=== PATIENT | female | born 1955 | race Caucasian/White ===

== ENCOUNTER 2024-12-27 12:25 | Outpatient (NON) | payer MEDICARE, OTHER, SELFPAY ==
--- OUTSIDE RECORDS SUMMARY | 2024-12-28 12:46 | XMS_ITS | Referral Summary ---
Author Organization [facility] Address [address] [place] [address] Care Team Providers Care Digital Imaging Technician Name Role Phone Leonard Serrano MD Primary Care Provider [phone] Source Comments [facility],non-owned Affiliates and Associated Physician Practices is amultiple site organization consisting of ambulatory clinics and hospital sitesin [place], [place], [place] and [place]. This disclosure is being madepursuant to the Care Everywhere program and may not contain all information available regarding this patient. Last updated 18.[facility] Allergies No known active allergies Medications * Be aware that medications may not be up to date on this document. Alwaysverify current medications with the patient. Medication Sig Dispensed Refills Start Date End Date Status LYSINE PO Active omega 3 (FISH OIL) 1200 MG capsule Take 1,200 mg by mouth once daily Active GARLIC PO Active lutein 10 MG tablet Take 10 mg by mouth once daily Active Bilberry, Vaccinium myrtillus, (BILBERRY PO) Active MILK THISTLE PO Active Misc Natural Products (TART COPOER ADVANCED PO) Active GRAPE SEED EXTRACT PO Act celio VITAMIN E PO Active Misc Natural Products (DANDELION ROOT) 520 MG Active Red Yeast Rice Extract (RED YEAST RICE PO) Activ e Coenzyme Q10 (COQ-10 PO) Active KRILL OIL PO Active Cholecalciferol (VITAMIN D-3 PO) Active Multiple Vitamin (MULTI VITAMIN PO) Take 0.5 tablets by mouth once daily Active Active Problems No known active problems Social History Tobacco Use Types Packs/Day Years Used Date Smoking Tobacco: Never Smokeless Tobacco: Never Alcohol Use Standard Drinks/Week Comments Yes 0 (1 standard drink = 0.6 oz pur e alcohol) OCCASIONALLY Sex and Gender Information Value Date Recorded Sex Assigned at Not on file Gender Identity Not on file Sexual Orientation Not on file Last Filed Vital Signs Vital Sign Reading Time Taken Comments Blood Pressure 114/76 02/09/2018 12:07 PM CDT Pulse 74 02/09/2018 12:07 PM CDT Temperature - - Respiratory Rate - - Oxygen Saturation 93% 02/09/2018 12:07 PM CDT Inhaled Oxygen Concentration - - Weight 66.2 kg (146 lb) 02/09/2018 12:07 PM CDT Height 152.4 cm (5') 02/09/2018 12:07 PM CDT Body Mass Index 28.51 02/09/2018 12:07 PM CDT Plan of Treatment Not on file Care Teams Digital Imaging Technician Relationship Specialty Start Date End Date Leonard Serrano MD [address] [address] PCP - General Internal Medicine 02/06/18
--- OUTSIDE RECORDS SUMMARY | 2024-12-28 12:46 | XMS_ITS | Clinical Summary ---
Author Organization [facility] Address [address] [place] [address] Care Team Providers Care Mud Grinder Name Role Phone Leonard Serrano MD Primary Care Provider [phone] Source Comments [facility],non-owned Affiliates and Associated Physician Practices is amultiple site organization consisting of ambulatory clinics and hospital sitesin [place], [place], [place] and [place]. This disclosure is being madepursuant to the Care Everywhere program and may not contain all information available regarding this patient. Last updated 18.[facility] Allergies No known active allergies Medications * [...] THISTLE PO Active Misc Natural Products (TART COOPER ADVANCED PO) Active GRAPE SEED EXTRACT PO [...] Active Active Problems No known active problems Family History Medical History Relation Name Comments CVA Mother Cataract Mother Cataract Sister Relation Name Status Comments Brother Alive Father Mother Sister Alive Social History Tobacco Use Types Packs/Day Years [...] 02/09/2018 12:07 PM CDT Plan of Treatment Health Maintenance Due Date Last Done Comments BONE DENSITY TESTING 1955 COLOGUARD (AGES 45-75) - COL ON CA SCREENING 1953 COLON MONITORING 1953 COLONOSCOPY - COLON CA SCREENING 1953 CT COLONOGRAPHY - COLON CA SCREENING 1953 Colorectal Cancer Screening 1953 FIT - COLON CA SCREENING 1953 FLEX SIG - COLON CA SCREENING 1953 LIPID TESTING 1953 MAMMOGRAM 1953 HEPATITIS C SCREENING 12/31/1970 DTAP/TDAP/TD VACCINES (1 - Tdap) 01/05/1972 PNEUMOCOCCAL VACCINE 50+ (1 of 1 - PCV) 2003 ZOSTER VACCINE (1 of 2) 2003 SCREENING FOR DIABETES 02/09/2018 COVID-19 VACCINE (1 - 2023-2 5 season) 2024 INFLUENZA VACCINE (#1) 2024 7, 09/14/2016 DEPRESSION SCREENING 10/24/2024 Respiratory Syncytial Virus (RSV) Vaccine Pt: or over 60 yrs (1 - 1-dose 75+ series) 01/05/2028 HEPATITIS B VACCINE Aged Out No longe r eligible based on patient's age to complete this topic HIB VACCINE Aged Out No longer eligi ble based on patient's age to complete this topic HPV VACCINE Aged Out No longer eligi ble based on patient's age to complete this topic MENINGOCOCCAL (Group B) VACCINE Aged Out No longer eligible b ased on patient's age to complete this topic MENINGOCOCCAL VACCINE Aged Out No kyra inocencio eligible based on patient's age to complete this topic Care Teams Mud Grinder Relationship Specialty Start Date End Date Leonard Serrano MD [address] [id number] PCP - General Internal Medicine 02/06/18
--- OUTSIDE RECORDS SUMMARY | 2024-12-28 12:46 | XMS_ITS | Continuity of Care Document ---
Author Organization [employer] [facility] Address [address] [place] [address] Phone Care Team Providers Care Mold Cooler Name Role Phone Alfredo OD, Blanca Unavailable Unavailable Allergies, Adverse Reactions, Alerts Substance Reaction Status Criticality No Known Allergies Active No Inform ation Medications Medication Instructions Dosage Effective Dates (start - stop) Status Comments bilberry 100 mg capsule take one tablet daily - Active lysine 500 mg tablet take one tablet daily 2018 - Active red yeast rice 600 mg capsule take one tablet daily - Active Fish Oil 1200 mg ORAL CAPSULE take one tablet daily - Active Procedures Procedure Date No Charge Optomap Fundus Photos 024 Corneal Pachymetry Eye Exam & Treatment No Charge Optomap Fundus Photos 023 Corneal Pachymetry Eye Exam & Treatment Fundus Photography W/ Report Corneal Pachymetry Eye Exam & Treatment Corneal Pachymetry No Charge Optomap Fundus Photos 020 Eye Exam & Treatment Post-op Follow-up Visit Corneal Pachymetry No Charge Refraction After Cataract Laser Surgery Office/outpatient Visit, Est No Charge Refraction Eye Exam & Treatment Office/outpatient Visit, Est No Charge Refraction Post-op Follow-up Visit Post-op Follow-up Visit Post-op Follow-up Visit Remove Cataract, Insert Lens Post-op Follow-up Visit After Cataract Laser Surgery No Charge Refraction No Charge Optomap Fundus Photos 016 IOLMaster No Charge Orbscan IOLMaster Office/outpatient Visit, Est Office/outpatient Visit, Est No Charge Refraction No Charge Refraction Office/outpatient Visit, Est Office/outpatient Visit, Est No Charge Refraction Eye Exam & Treatment No Charge Refraction Post-op Follow-up Visit Post-op Follow-up Visit Post-op Follow-up Visit Remove Cataract, Insert Lens Office/outpatient Visit, Est IOLMaster Eye Exam & Treatment Eye Exam & Treatment Advance Directives Directive Yes / No Effective Date File Name No Information Encounters Encounter Description Practice Location Reason(s) For Visit Diagnoses Date Provider Providers Copied on Encounter [facility], [address], [place], [place], [address], tel:[phone] SEC Burt HENNESSY Professional Complete Exam (chief complaint) Presence of intraocular lensEndothel ial corneal dystrophy, bilateralDry eye syndrome of bilateral lacrimal glands 4 Alfredo OD Blanca. [address] [place] [address] [address], [place], [place], [address], . tel:[phone] Referring Provider: Tyrel Haddad, [address], [place], [address] . tel:[phone] [facility], [address], [place], [place], [address], [place] tel:[phone] SEC [place] Professional Complete Exam (chief complaint) Endothelial corneal dystrophy, bilateralPre sence of intraocular lens Mar- 3- 3 Romulo Sarah. [address], [place], [place], [address], [place]. tel:[phone] Referring Provider: Tyrel Haddad, [address], [place], [address] . tel:[phone] [facility], [address], [place], [place], [address], [place] tel:[phone] [place] Complete Exam (chief complaint) Bilateral artificial lens implantEndot helial corneal dystrophy, bilateralVit reous degeneration , bilateral Oct-2 1 Romulo Sarah. [address], [place], [place], [address], [place]. tel:[phone] Referring Provider: Tyrel Haddad, [address], [place], [address] . tel:[phone] [facility], [address], [place], [place], [address], [place] tel:[phone] [place] Professional Complete Exam (chief complaint) Endothelial corneal dystrophyPre sence of intraocular lensPunctate keratitis, bilateral Aug-2 0 Romulo Sarah. [address], [place], [place], [address], [place]. tel:[phone] Referring Provider: Tyrel Haddad, [address], [place], [address] . tel:[phone] [facility], [address], [place], [place], [address], [place] tel:[phone] [place] Post-Op (chief complaint) Encounter for examination following surgery 0 9 Diego David. [address] [facility] [place], [address], [place], [address], [place]. tel:[phone] Referring Provider: Major Merrill, [address], [place], [address] . tel:[phone] Office/outpa tient Visit, [facility], [address], [place], [place], [address], [place] tel:[phone] SEC Burt HENNESSY Professional Blurry vision (chief complaint) Presence of intraocular lensOther secondary cataract, right eyePunctate keratitis, left eyeEndotheli al corneal dystrophyPin guecula of both eyes 9 Romulo Sarah. [address], [address], [place], [place], [address], [place]. tel:[phone] Referring Provider: Tyrel Haddad, [address], [place], [address] . tel:[phone] [facility], [address], [place], [place], [address], [place] [phone] SEC Burt HENNESSY Professional Complete Exam (chief complaint) Bilateral artificial lens implantOther secondary cataract, right eyePVD (posterior vitreous detachment), left eyeSuperfici al punctate keratitis of right eyeEndotheli al corneal dystrophyAll ergic conjunctivit is of both eyesPinguecu la of both eyes 8 Romulo Sarah. [address], [address], [place], [place], [address], [place]. tel:[phone] Referring Provider: Major Merrill, [address], [place], [address] . tel:[phone] Office[facility]outpa [facility]ient Visit, [facility], [address], [place], [place], [address], [place] tel:[phone] [place] Professional 4 mo DFE (chief complaint) Bilateral artificial lens implantAfter cataract of right eye not obscuring vision Rigo Gonsalves. [address], [address] [place], [address], . tel:[phone] Referring Provider: Major Merrill, [address], [place], [address] . tel:[phone] [facility], [address], [place], [place], [address], [place] tel:[phone] SEC [place] Professional 2 week PO (chief complaint) No Information Romulo Sarah. [address], [address] [place], [address], [place]. tel:[phone] Referring Provider: Major Merrill, [address], [place], [address] . tel:[phone] [facility], [address], [place], [place], [address], [place] tel:[phone] [place] Professional WIE Possible Infection (chief complaint) No Information Rigo Gonsalves. [address], [address] [place], [address], [place]. tel:[phone] Referring Provider: Major Merrill, [address] [place], [address] . tel:[phone] [facility], [address], [place], [place], [address], [phone] [place] Professional Post-Op (chief complaint) No Information 7 Romulo Sarah. [address], [address], [place], [place], [address], [place]. tel:[phone] Referring Provider: Major Merrill, [address], [place], [address] . tel:[phone] [facility], [address] [place] [address] [address], [place], [place], [address], [place] tel:[phone] [facility] No Information [address] [place] [address] [facility] [address], [address], [place], [place], [address], [place]. tel:[phone] Referring Provider: Major Merrill, [address], [place], [address] . tel:[phone] [facility], [address] [place] [address] [address], [place], [place], [address], [place] tel:[phone] [place] Professional 2-4 week PO Yag PC OS (chief complaint) No Information 6 Rigo Gonsalves. [address], [place], [place], [address], [place]. tel:[phone] Referring Provider: Major Merrill, [address] [facility] [address], [place], [address] . tel:[phone] Office/outpa [place]ient Visit, [facility], [address] [place] [address] [address], [place], [place], [address], [place] tel:[phone] SEC Venkatesh Rivas J[address] YAG PC OS (chief complaint) No Information [address] [place] [address] [facility] [employer], [address], [place], [place], [address], [place]. tel:[phone] Referring Provider: Major Merrill, [address], [place], [address] . tel:[phone] Office/outpa tient Visit, [facility], [address], [place], [place], [address], [place] tel:[phone] [place] Professional Decreased Vision (chief complaint) No Information 8-201 6 Wankleón Gonsalves. [address], [address] [place], [address], [place]. tel:[phone] Referring Provider: Major Merrill, [address] [place], [address] . tel:[phone] Office/outpa tient Visit, [facility], [address], [place], [place], [address], [place] tel:[phone] [place] Professional 6 month PCF check (chief complaint) No Information Dec- 0-201 6 Rigo Gonsalves. [address], [address] [place], [address], [place]. tel:[phone] Referring Provider: Major Merrill, [address] [facility] [place], [address] . tel:[phone] Office/outpa tient Visit, [facility], [address], [place], [place], [address], [place] [phone] [place] Professional Blurry vision (chief complaint) No Information Sep-1 0-201 5 Wankum Major. [address], [address] [place], [address], [place]. tel:[phone] [facility], [address], [place], [place], [address], [place] [phone] [place] Professional Blurry vision (chief complaint) No Information Trung-0 6-201 5 Wankum Major. [address], [address] [place], [address], [place]. tel:[phone] [facility], [address], [place], [place], [address], [place] tel:[phone] [place] Professional eyes tired when reading (chief complaint) No Information 3 Rigo Gonsalves. [address], [place], [place], [address], [place]. tel:[phone] [facility], [address], [place], [place], [address], [place] tel:[phone] [place] Professional eyes doing well, without complaint. (chief complaint) No Information 3 Rigo Gonsalves. [address], [address] [place], [address], [place]. tel:[phone] Referring Provider: Major Merrill, [address] [place] [place], [address] . tel:[phone] [facility], [address], [place], [place], [address], [place] tel:[phone] SEC [place] Professional eyes doing well, without complaint. (chief complaint) No Information 3 Rigo Gonsalves. [address], [place], [place], [address], [place]. tel:[phone] Referring Provider: Major Merrill, [address] [place] [place], [address] . tel:[phone] [facility], [address], [place], [place], [address], [place] tel:[phone] [facility] No Information 3 Sabrina Escobar. [address], [address], [place], [place], [address], [place]. tel:[phone] Referring Provider: Major Merrill, [address] [facility] [address], [place], [address] . tel:[phone] [facility], [address], [place], [place], [address], tel:[phone] SEC Burt [place] Professional burning (chief complaint) No Information [address] [facility] [address], [address], [place], [place], [address], [place]. tel:[phone] Referring Provider: Escobar Merrill, [facility] [address], [place], [address] . tel:[phone] [address], [address], [place], [place], [address], [place] tel:[phone] SEC [place] Professional a comprehensive exam (chief complaint) No Information 201 2 Rigo Gonsalves. [address], [facility] [address], [place], [place], [address], [place]. tel:[phone] [employer] [facility], [address], [place], [place], [address], tel:[phone] SEC Burt [place]OO Professional No Information 200 7 Rigo Gonsalves. [address], [address], [place], [place], [address], . tel:[phone] Family History Family Member Type Diagnosis Age At Onset Problem (finding) Family history of glauc jazmin Mother Problem (finding) Retinal disease Payers Payer name Insurance type Covered constitution party ID Authoriza tiani(s) Medicare [facility] [id number] Physicians [facility] [id number] Social History Type Description Quantity Date Captured Comments Alcohol Use Details No Caffeine Use Details 2 cups per day Tobacco Use Status Current non-smoker Smoking Status Never smoker Non-Smoking Tobacco Use Details : No Details Available : No Details Available Sex Female Sexual Orientation Don't Know Gender Identity Female Chief Complaint And Reason For Visit From encounter dated '01/06/2024 09:15'. Complete Exam (chief complaint). Description: The 69 year old patient presents for a complete exam ou. Monitoring Fuchs ou. Patient is pseudo ou with yag caps ou. Patient denies any changes in visionou. Patient wears OTC reading glasses. Reason For Referral Reason For Referral No Information Plan Of Treatment Date Type Action Status Patient Education Learning About Your Eye s completed Patient Education Learning About Vitreous Detachment completed Patient Education Learning About Your Eye s completed Patient Education Learning About YAG Lase r Capsulotomy completed History Of Present Illness Encounter Date Complaint History Of Prese nt Illness Complete Exam The 69 year old patient presents for a complete exam ou. Monitoring Fuchs ou. Patient is pseudo ou with yag caps ou. Patient denies any changes in vision ou. Patient wears OTC reading glasses. Complete Exam The 67 year old patient presents for evaluation of Complete Exam with pachs in the right eye and left eye. Pt reports stable VA, OU, DV and NV, since last appt. Pt reports she doesn't use any gtts, OU. Complete Exam The 66 year old female presents for evaluation of Complete Exam in the right eye and left eye. Hx of PCIOL OU, YAG PC OU, and Fuch's OU. Patient denies any problems or changes with eyes. VA is stable OU. Patient not on any gtts. Complete Exam The 65 year old female presents for evaluation of Complete Exam in the right eye and left eye monitoring Fuchs. Patient is pseudo ou with yag caps ou. Patient denies any changes in vision ou. Patient c/o eyes are always red. Post-Op The 64 year old female presents for a 1 month post op yag pc OD. Patient states vision OD is much better. Blurry vision The 63 year old female presents for evaluation of Blurry vision in the right eye. Hx of PCIOL OU, YAG PC OS, PCO OD, PVD OS, Fuch's OU, MICHAEL OU, Pinguecula OU, and Allergic conjunctivitis OU. Pt reports she has noticed OD is cloudy, x 3 wks. 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 Pt reports she has no pain or irritation today, OU. Pt reports she has been using Patanol BID OU and it helped with the tearing so they no longer tear, but they are red OD>OS, and has been for years and Patanol didn't help with the redness. Pt reports she stopped using the Patanol last week because it seemed to make the blurriness worse, OD. Complete Exam The 63 year old female presents for evaluation of Complete Exam in the right eye and left eye. Hx of PCIOL OU and Yag PC OS. Patient states her eyes seem more sensitive to everything wind and light especially. Both eyes water a lot and red. 4 mo DFE The 62 year old female presents for 4 mo DFE in the right eye and left eye. Hx of PC IOL OU and Yag PC OS. Pt using no gtts at this time. Pt states OU feel dry sometimes. Pt using Herrenschmiede readers for small print. Pt states no VA complaints OU x 4 mos. 2 week PO The 61 year old female presents for 2 week PO in the right eye. Hx PCIOL OU, Yag PC OS. Pt using Diclo, Pred, and Poly as directed. PT states her vision is doing very good, much better than last exam. Pt states she si not having any pain/discomfort. WIE Possible Infection The 61 ye ar old female presents for WIE Possible Infection in the right eye. Hx PCIOL OU, YAG PC OS. Pt using Pred QID OD. Pt states Tuesday morning she had throbbing and aching in OD, she is having light sensitivity and some distortion. States she had some mattering in OD last night and she cleaned it off. Did not have mattering this morning. Pt states no problems OS Post-Op The 61 year old female presents for a 1 day post op CE OD. Patient to begin Pred and Poly qid OD. Patient states OS felt scratchy last night but feels better this am. 2-4 week PO Yag PC OS The 61 yea r old female presents for 2-4 week PO Yag PC in the left eye. Phaco w/PCIOL OS. Pt states no eye drops. Pt states her vision is much better since having the Yag Laser. Pt states she is not having any pain/discomfort. YAG PC OS The 61 year old female presents for YAG PC OS, Cataract evaluation OD, patient denies any pain or discomfort at this time, states v/a has slowly decreased over time in the distance, near, and c glare OU. Patient does not use any gtts at this time. Decreased Vision The 61 year old female presents for Decreased Vision OS. Patient has hx of PCIOL OS, NSC OD. She states the over last month she has noticed a decrease in VA OS>OD. She states that she has been having a lot more eye strain. She denies flashes and floaters OU. 6 month PCF check The 60 year ol d female presents for a 6 month PCF check in the left eye. Patient states VA in the left eye is the same as last visit doesn't feel its any worse. Blurry vision The 60 year old female presents for Blurry vision in the left eye. Patient states the left eye is blurry, images just not as clear as before. Patient has trouble watching television. Blurry vision The 60 year old female presents for complete exam. Patient Hx Phaco c PCIOL OS. Patient c/o blurry v/a with glares and bright lights for distance and at near OD. Patient denies any pain or discomfort at this time. Patient not taking any gtts. Functional Status Date Functional Assessmen t No Information Instructions Date Instruction Additional Infor cecilia Impression/Plan Impression/Plan Impression/Plan Impression/Plan 1yr complete or sooner Related t o Encounter for examination following surgery Impression/Plan Related to Jeannette nter for examination following surgery Impression/Plan Educational material given Relat ed to Bilateral artificial lens implant Impression/Plan Educational material given Relat ed to Bilateral artificial lens implant Bilateral artificial lens implant - Educational material given Related to Bilateral artificial lens implant Follow up - 1 year for complete exam Impression/Plan - Di scussed diagnosis in detail with patient. IOL's in good position. open pc OS, PCF OD. Discussed Yag PC as treatment if ever indicated in the future. Return to clinic in 1 year for complete exam or sooner with any problems. Follow up - Return t o clinic in 4 months for DFE with GAW Impression/Plan - 2 week s/p IOL OD. Patient healing well. IOL in good position. Medication instillation reviewed with patient in detail. Patient elects to continue with OTC readers as needed. Recommend patient return in 4 months or sooner with problems. Follow up - as scheduled Impression/Plan - No signs of infection. Continue post op drops as instructed. Continue Poly QID OD until next appt. Trace cell and flare OD. Start Diclofenac TID OD. [facility]. Return to clinic as scheduled or sooner with any problems. Follow up - Return to clinic as scheduled Impression/Plan - On e Day Post Op s/p Phaco with IOL OD in good position. Patient healing well. Medication instillation, shield use and restrictions reviewed with patient. Return to clinic as scheduled or sooner with problems. Impression/Plan - Go od result after YAG OS, will continue to monitor pt. Proceed with CE OD. Follow up - Proceed with CE OD shed CE OD 2nd eye Related to Ag e-related nuclear cataract, right eye 2-4 weeks po yag pc os with GAW Related to Other secondary cataract, left eye Follow up - 2-4 week s po yag pc os with GAW Related to Other secondary cataract, left eye Impression/Plan - PC F is the cause for the patients complaints discussed treatment options with pt. R/A/B of Yag PC discussed and understood by pt and the pt wishes to proceed with OS today.Return in 2-4 weeks for po Yag PC OS with GAW Related to Other secondary cataract, left eye Follow up - sched CE OD 2nd eye Related to Age-related nuclear cataract, right eye Impression/Plan - Ca taract presence is the cause of the patients visual complaints and progression without treatment discussed. Discussed all risks, benefits, procedures and recovery. Vision will not significantly improve with a change in glasses and we recommend not changing. The patient understands this is an elective procedure and may proceed when desired. The patients questions were answered and demonstrates understanding of our discussion. Patient desires to have surgery, recommend phacoemulsification with intraocular lens. LAG did CE OS in 2012, we need only chart from storage LRI discussed and this is optional. Since she has more astigmatism OS than OD and since she still have astigmatism OS she will need to wear specs. She defers Related to Age-related nuclear cataract, right eye Other secondary nupur ract, left eye - Surgery advised; risks, benefits, alternatives discussed. Related to Other secondary cataract, left eye After-cataract of le ft eye with vision obscured - Educational material given Related to After-cataract of left eye with vision obscured Impression/Plan - IO L OS in position, pcf. Discussed PCF formation with pt, discussed YAG PC for treatment. R/a/b explained. Pt understands and will schedule. Patient understands increased floaters are common after Yag pc. Follow up - Schedule Yag PC OS Impression/Plan - Di scussed dx with pt. Discussed PCF formation and YAG PC if ever indicated in the future. Pt understands signs of progression and instructed to return to clinic if vision worsens. IOL OS in good position. Cataract OD will continue to monitor. Return to clinic in 1 year for complete exam or sooner with any problems. Nuclear cataract of right eye - Educational material given Related to Nuclear cataract of right eye Follow up - Return i n 1 year with Major Sierra M.D. for Complete Exam. Impression/Plan - Di scussed dx with pt. Discussed PCF formation and YAG PC if ever indicated in the future. Pt. understands signs of progression and instructed to return to clinic if vision worsens. Return to clinic in 6 months for follow up with BAT and possible Yag PC OS. Follow up - Return i n 6 months with Major Sierra M.D. for Glare test with possible YAG PC OS. After cataract limit ing vision - Educational material given Related to After cataract limiting vision - Discussed diagnosi s in detail with patient. PCF OS discussed patient will monitor and call the office if vision or glare worsens. Cataract OD discussed patient understands and will call if vision changes. Return to clinic in 1 year for complete exam with BAT OU prior to dilation. Related to See list of assessments above - Return in 1 year w homa Sierra M.D. for Complete Exam Related to See list of assessments above - 6mths mild cat od postop cat with pcio l os and mild increase iop after surg-now nl. Fh glaucoma 2weekpostop cat with pciol os-can read without rx but wants glasses - finish dropsglasses - 1mth-recheck iop off all meds mild increase iop 1 day postop cat wit h pciol os-corneal edema - start drops - keep appt Cataract, Nuclear Sc lerosis, OU - established, worsening - vision affected - may improve with surgery - Cataract(s) accounts for patient's complaints. Discussed all risks, benefits, procedures and recovery. Patient understands changing glasses will not improve vision. Patient desires to have surgery, recommend PE w/IOL. Ascan needed for OS to confirm IOL master. Lifestyle IOLs discussed with pt. Pt understands these IOLs work best when in OU. Pt awaredepending on IOL type she may still need reading specs after CE. Anisometropia also understood may occur after CE OS Related to Cataract, Nuclear Sclerosis - sched CE OS Related to Catar act, Nuclear Sclerosis cataract os - cat eval Assessments Type Assessment Date assessment Presence of intraocular lens Dec assessment Endothelial corneal dystrophy, b ilateral assessment Dry eye syndrome of bilateral la crimal glands Patient Care Teams Name Effective Dates (start - stop) Status Members No Information
--- OUTSIDE RECORDS SUMMARY | 2024-12-28 12:46 | XMS_ITS | Patient Health Summary ---
Author Organization [facility] Address [address] [place] [address] Care Team Providers Care Swat Team Member Name Role Phone Leonard Serrano MD Primary Care Provider [phone] Note from [facility],non-owned Affiliates and Associated Physician Practices is amultiple site organization consisting of ambulatory clinics and hospital sitesin [place], [place], [place] and [place]. This disclosure is being madepursuant to the Care Everywhere program and may not contain all information available regarding this patient. Last updated 18.[facility] Allergies No known active allergies Medications * Be aware that medications may not be up to date on this document. Alwaysverify current medications with the patient. * LYSINE PO * omega 3 (FISH OIL) 1200 MG capsule Take 1,200 mg by mouth once daily * GARLIC PO * lutein 10 MG tablet Take 10 mg by mouth once daily * Bilberry, Vaccinium myrtillus, (BILBERRY PO) * MILK THISTLE PO * Misc Natural Products (TART COOPER ADVANCED PO) * GRAPE SEED EXTRACT PO * VITAMIN E PO * Misc Natural Products (DANDELION ROOT) 520 MG * Red Yeast Rice Extract (RED YEAST RICE PO) * Coenzyme Q10 (COQ-10 PO) * KRILL OIL PO * Cholecalciferol (VITAMIN D-3 PO) * Multiple Vitamin (MULTI VITAMIN PO) Take 0.5 tablets by mouth once daily Active Problems No known active problems Social [...] Mass Index 28.51 02/09/2018 12:07 PM CDT Procedures * IMAGING/RADIOLOGY/XRAY RESULTS ORDER(Performed 02/23/2018) Results * IMAGING/RADIOLOGY/XRAY RESULTS ORDER (02/23/2018) Anatomical Region Laterality Modality Other Justin Snyder MD IMAGING Care Teams Swat Team Member Relationship Specialty Start Date End Date Leonard Serrano MD [address] [place] [id number] PCP - General Internal Medicine 02/06/18
== END 2024-12-27 12:26 | disposition home or self-care (01) ==
LOC: ANHLAB 12-28 12:27
PROVIDERS: Visit Provider Plastic Surgery
DX: L72.3 Sebaceous cyst (principal)
CPT/HCPCS: 88305